=== PATIENT | female | born 1985 | race Two or more races ===

== ENCOUNTER 2016-08-06 13:58 | Emergency (ER) | payer OTHER ==
[2016-08-06 14:15] VITALS: TEMP 98.2; O2SAT 97
--- NOTE | 2016-08-06 14:40 | EDPHY ---
H & P HPI/ROS: This patient with history IBS reports a 2 day history of crampy discomfort intermittently in her lower belly and soft stools 2 times a day. Currently the abdominal pain has resolved. She also notes a small skin abnormality at the site of her wound and the combination of the symptoms prompted her visit today. She had concerned that the skin lesion might represent wound dehiscence. She had an uncomplicated 5 weeks prior to arrival at [facility] in [facility]. She reports no discomfort associated with the skin lesion. ROS: No fevers or chills. No other constitutional symptoms HEENT: No recent URI symptoms Pulmonary: No complaints Cardiovascular: No lightheadedness GI: Currently no abdominal pain. No nausea vomiting. She maintains normal appetite. She has soft stools but no blood in her stools more mucus. : No urinary symptoms Integumentary: No other skin lesions besides the small lesion at the site. 10 point ROS is otherwise negative Smoking Status: Never smoked Physical Exam: General Appearance: Alert, no distress. Eyes: Pupils equal and round no pallor or injection. ENT, Mouth: Mucous membranes moist. Respiratory: There are no retractions, lungs are clear to auscultation. Cardiovascular: Regular rate and rhythm. Gastrointestinal: Slightly hyperactive bowel sounds, soft, nontender Neurological: alert with no focal deficits Skin: Warm and dry, no rashes. the patient has a clean dry intact suprapubic horizontal scar. There is a 2 mm superficial skin erosion 2 cm from the right border of the incision scar that has no tenderness, no bleeding, no discharge and is very superficial. there is no underlying fluctuance, warmth to touch, discharge or other abnormal findings. Extremities are symmetrical, full range of motion. Psychiatric: Mood and affect are normal DIFFERENTIAL DIAGNOSIS: After history and physical exam differential diagnosis was considered for apparent IBS symptoms and a benign skin lesion, doubt wound infection, doubt infectious gastroenteritis Constitutional: Initial Vital Signs Temperature (C) 36.8 C 08/06/16 14:13 Heart Rate 78 08/06/16 14:13 Respiratory Rate 18 08/06/16 14:13 Blood Pressure 118/72 08/06/16 14:13 O2 Sat (%) 97 08/06/16 14:13 O2 Delivery Mode Room Air Allergies/Adverse Reactions: Sulfa (Sulfonamide Antibiotics) Allergy (Verified 08/06/16 14:37) Home Medications: Medication Instructions Recorded HYOSCYAMINE SULFATE [LEVSIN-SL] 0.125 - 0.25 mg SL Q6 PRN #15 08/06/16 tab.subl MDM/Departure - [facility] ED Course/Re-evaluation: discussion: This patient has a very benign presentation with essentially normal abdominal exam currently and no abdominal symptoms at this time. I think that she is apprehensive about a minimal skin lesion at the site of her C- section scar that appears consistent with a superficial de roofed ingrown hair similar small vesicular lesion without evidence of associated cellulitis, abscess or other complicating factors. I counseled her regarding my clinical impression and did not feel that further workup is warranted at this time. I advised the patient to try Levsin for cramping if she does not have any kind of anti spasmodic. She explains that she was taking something for her IBS symptoms prior to becoming but does recall what it was. She understands the need to return should she developed increasing redness or or further symptoms at the site, recurrence of her abdominal pain despite Levsin or other concerns - Depart Disposition: Home, Routine, Self-Care Clinical Impression: Skin complaints, Diarrhea Condition: Good Instructions: Acute Diarrhea (ED) Additional Instructions: Diagnosis: 1. Skin complaint 2. Diarrhea Plan: Drink plenty fluids Consider stopping dairy products for some time to see if that helps year bowel symptoms Levsin if needed for cramping For the skin, clean it daily with warm soapy water and apply warm packs. Return if he developed significant redness, significant drainage, fevers or other concerns. Prescriptions: HYOSCYAMINE SULFATE [LEVSIN-SL] 0.125 - 0.25 mg SL Q6 PRN #15 tab.subl PRN Reason: abdominal cramping Referrals: AVANS,UNKNOWN [Other] - As per Instructions
[2016-08-06 15:10] VITALS: BP 119/73; PULSE 76; RESP 16
== END 2016-08-06 14:55 | disposition home or self-care (01) ==
LOC: CED 13:58
DX: O99.89 Other specified diseases and conditions complicating pregnancy, childbirth and the puerperium (principal); R19.7 Diarrhea, unspecified; O99.73 Diseases of the skin and subcutaneous tissue complicating the puerperium; L98.9 Disorder of the skin and subcutaneous tissue, unspecified